=== PATIENT | male | born 1960 | race Caucasian/White ===

== ENCOUNTER 2023-03-18 06:00 | Day surgery (SDC) | payer MEDICAID ==
[2023-03-18] MEDS ORDERED: Acetaminophen 500 MG Tab PO ONE (06:30)
[2023-03-18] MEDS ORDERED: Bacitracin Oint 1 GM U/D Packet ONE (06:40)
[2023-03-18] MEDS ORDERED: Lidocaine 1% with EPINEPHrine 1:100,000 50 ML MDV ONE (06:40)
[2023-03-18] MEDS ORDERED: Bupivacaine 0.5% 50 ML MDV ONE (06:40)
[2023-03-18] MEDS ORDERED: Lactated Ringers 1,000 ML IV SCH (06:45)
[2023-03-18] MEDS ORDERED: fentaNYL 100 MCG/2 ML SDV ONE (07:13)
[2023-03-18] MEDS ORDERED: Midazolam 1 MG/ML 2 ML SDV ONE (07:13)
[2023-03-18] MEDS ORDERED: Propofol 200 MG/20 ML SDV ONE ×2 (07:13→08:10)
[2023-03-18] MEDS ORDERED: ceFAZolin 2 GM in Sodium Chloride 0.9% 50 ML IV ONE (07:30)
== END 2023-03-18 10:15 | disposition home or self-care (01) ==
LOC: JP.SDS 06:00
PROVIDERS: ATTEND Student in an Organized Health Care Education/Training Program
DX: C83.15 Mantle cell lymphoma, lymph nodes of inguinal region and lower limb (principal); E11.9 Type 2 diabetes mellitus without complications
CPT/HCPCS: 38531; A9270; J0690; J2250; J2704; J3010; J3490; J7120; 88307; 88341; 88342; 88360